=== PATIENT | female | born 1940 | race Caucasian/White ===

== ENCOUNTER 2018-07-21 15:42 | Observation (INO) | payer MEDICARE ==
[~2018-07-21] VITALS: Ht 157.5 cm; Wt 49.9 kg
[2018-07-21] MEDS ORDERED: SODIUM CHLORIDE 0.9% 1000ML 1,000 ML IV STA (15:54)
[2018-07-21] MEDS ORDERED: ASPIRIN 81 MG CHEW TAB PO ONE ×2 (16:00→19:45)
--- NOTE | 2018-07-21 16:24 | Diagnostic Imaging Report ---
History: Slurred speech Comparison studies: None Technique: Axial images were obtained from the skull base to the vertex. Coronal and sagittal reconstructions obtained from the axial data. Dose modulation, iterative reconstruction, and/or weight based adjustment of the mA/kV was utilized to reduce the radiation dose to as low as reasonably achievable. Findings: Scalp/skull: No abnormalities. No fractures, blastic or lytic lesions. Extra-axial spaces: No masses. No fluid collections. Brain sulci: Mildly prominent. Ventricles: Mild compensatory dilatation. No hydrocephalus. 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 Punctate lacunar insults are centered in the lateral thalami. No masses, hemorrhage, acute or additional chronic cortical vascular insults. Sellar/suprasellar region: No abnormalities Craniocervical junction: Patent foramen magnum. No Chiari one malformation. Incidental atherosclerotic calcifications in the carotid siphons and left vertebral artery. IMPRESSION: No acute abnormalities. No hemorrhage Chronic findings: 1. Mild generalized volume loss. 2. Cortical left parieto-occipital (MCA) vascular insult. 3. Punctate lacunar insults in the lateral thalami. Signed by: Dr. Isac Morales M.D. on 07/21/2018 4:20 PM
--- NOTE | 2018-07-21 16:27 | Diagnostic Imaging Report ---
EXAM: XR CHEST 1 VIEW DATE: 07/21/2018 3:54 PM INDICATION: Slurred speech COMPARISON: None FINDINGS: Lines and Tubes: None Heart and Mediastinum: Heart prominent. Prominence of the krista bilaterally. Aortic vascular calcifications. Lungs and Pleura: Biapical scarring. No focal consolidation or pneumothorax. Bones and Soft Tissues: No acute findings. IMPRESSION: 1. Cardiomegaly with hilar prominence. Findings could represent vascular congestion or prominent pulmonary arteries. Follow-up recommended. Signed by: Dr. Mateusz Dewitt MD on 07/21/2018 4:24 PM
[2018-07-21 16:40] LABS: BASOPHILS % 0.4 % (0.0-1.0); EOSINOPHILS # (AUTO) 0.2 (0.0-0.4); EOSINOPHILS % 1.8 % (0.0-6.0); HEMATOCRIT 36.3 % (34.2-44.1); HEMOGLOBIN 12.6 g/dL (12.0-16.0); LYMPHOCYTES # (AUTO) 4.9 (1.0-3.2); LYMPHOCYTES % 49.1 % (18.0-39.1); MEAN CORPUSCULAR HEMOGLOBIN 32.6 pg (28-32); MEAN CORPUSCULAR HGB CONC 34.7 g/dL (31-35); MEAN CORPUSCULAR VOLUME 93.8 fL (81-99); MONOCYTES # (AUTO) 1.1 (0.2-0.8); MONOCYTES % 11.3 % (4.4-11.3); NEUTROPHILS # (AUTO) 3.7 (2.1-6.9); PLATELET COUNT 201 x10e3/uL (140-360); RED BLOOD COUNT 3.87 x10e6/uL (3.6-5.1); RED CELL DISTRIBUTION WIDTH 13.3 % (11.7-14.4)
[2018-07-21 16:45] LABS: INR 0.99; PARTIAL THROMBOPLASTIN TIME 23.5 seconds (23.8-35.5); PROTHROMBIN TIME 12.3 seconds (11.9-14.5)
[2018-07-21 16:52] LABS: ALBUMIN 3.5 g/dL (3.5-5.0); ALBUMIN/GLOBULIN RATIO 1.1 (0.8-2.0); ANION GAP 16.9 mmol/L (8-16); CALCIUM 9.9 mg/dL (8.4-10.2); CREATININE, SERUM 1.1 mg/dL (0.57-1.11); POTASSIUM 3.9 mmol/L (3.5-5.1)
[2018-07-21 17:12] LABS: CREATINE KINASE MB 2.7 ng/mL (0-5.0); THYROID STIMULATING HORMONE 1.411 uIU/mL (0.350-4.940)
[2018-07-21 18:29] LABS: BILIRUBIN,URINE NEGATIVE (NEGATIVE); CLARITY,URINE CLEAR (CLEAR); COLOR,URINE YELLOW (YELLOW); KETONES,URINE NEGATIVE (NEGATIVE); LEUKOCYTE ESTERASE ,URINE TRACE (NEGATIVE); NITRITE,URINE NEGATIVE (NEGATIVE); PROTEIN,URINE DIPSTICK NEGATIVE (NEGATIVE); URINE UROBILINOGEN 0.2 mg/dL (0.2 - 1)
[2018-07-21 18:40] LABS: BACTERIA,URINE FEW /HPF; EPITHELIAL CELLS,URINE MODERATE /LPF; RBC,URINE 0-5 /HPF (0-5)
[2018-07-21] MEDS ORDERED: ONDANSETRON HCL INJ 2 MG/ML VIAL IV PRN (19:45)
[2018-07-21] MEDS ORDERED: CARVEDILOL3.125 MG PO (20:35)
[2018-07-21] MEDS ORDERED: LISINOPRIL10 MG PO (20:35)
[2018-07-21] MEDS ORDERED: HYDROCHLOROTHIA25 MG PO (20:35)
[2018-07-21] MEDS ORDERED: SIMVASTATIN80 MG PO (20:35)
[2018-07-21] MEDS: SODIUM CHLORIDE 0.9% 1000ML 1,000 ML IV SCH ×2 (20:36→23:10)
[2018-07-21] MEDS: CLOPIDOGREL BISULFATE 75 MG TAB PO SCH (20:36)
[2018-07-21 22:28] VITALS: BP 186/79
[2018-07-21 22:42] VITALS: BP 186/79
[2018-07-22] VITALS: BP 127/59
[2018-07-22 00:29] LABS: CREATINE KINASE MB 2.9 ng/mL (0-5.0)
[2018-07-22 04:00] VITALS: BP 160/70
[2018-07-22 04:59] LABS: BASOPHILS % 0.3 % (0.0-1.0); EOSINOPHILS # (AUTO) 0.1 (0.0-0.4); EOSINOPHILS % 1.7 % (0.0-6.0); HEMATOCRIT 32.6 % (34.2-44.1); HEMOGLOBIN 11.1 g/dL (12.0-16.0); LYMPHOCYTES # (AUTO) 1.7 (1.0-3.2); LYMPHOCYTES % 25.2 % (18.0-39.1); MEAN CORPUSCULAR HEMOGLOBIN 32.2 pg (28-32); MEAN CORPUSCULAR VOLUME 94.5 fL (81-99); MONOCYTES # (AUTO) 0.8 (0.2-0.8); MONOCYTES % 12.6 % (4.4-11.3); NEUTROPHILS % 59.7 % (38.7-80.0); PLATELET COUNT 161 x10e3/uL (140-360); RED BLOOD COUNT 3.45 x10e6/uL (3.6-5.1); RED CELL DISTRIBUTION WIDTH 13.4 % (11.7-14.4)
[2018-07-22 05:17] LABS: ANION GAP 11.9 mmol/L (8-16); BLOOD UREA NITROGEN 23 mg/dL (7-26); BUN/CREATININE RATIO 28 (6-25); CALCIUM 8.2 mg/dL (8.4-10.2); CARBON DIOXIDE 23 mmol/L (22-29); CHLORIDE 111 mmol/L (98-107); CHOL/HDL RATIO 2.1 (3.0-3.6); CHOLESTEROL 130 MD/DL (0-199); CREATININE, SERUM 0.81 mg/dL (0.57-1.11); EST GLOMERULAR FILTRATION RATE > 60 ML/MIN (60-); GLUCOSE 85 mg/dL (74-118); HDL CHOLESTEROL 61 MG/DL (40-60); LDL CHOLESTEROL 55 MG/DL (60-130); POTASSIUM 3.9 mmol/L (3.5-5.1); SODIUM 142 mmol/L (136-145); TRIGLYCERIDES 71 MG/DL (0-149)
[2018-07-22 05:43] LABS: CREATINE KINASE MB 2.5 ng/mL (0-5.0)
[2018-07-22 07:44] VITALS: BP 157/70
[2018-07-22] MEDS: CLOPIDOGREL BISULFATE 75 MG TAB PO SCH (08:38)
[2018-07-22] MEDS ORDERED: ASPIRIN 81 MG ENTERIC COATED PO SCH (09:00)
[2018-07-22 10:39] VITALS: BP 157/70
[2018-07-22 11:38] VITALS: BP 179/74
[2018-07-22] MEDS ORDERED: HYDROCHLOROTHIAZIDE 25 MG TAB PO SCH (12:00)
[2018-07-22] MEDS ORDERED: LISINOPRIL 20 MG TAB PO SCH (12:00)
[2018-07-22 15:35] VITALS: BP 170/74
[2018-07-22] MEDS ORDERED: CARVEDILOL 3.125 MG TAB PO SCH (17:00)
[2018-07-22] MEDS ORDERED: SIMVASTATIN 80 MG TAB PO SCH (21:00)
[2018-07-23] MEDS ORDERED: LISINOPRIL 10 MG TAB PO SCH (09:00)
[2018-07-23] MEDS ORDERED: SIMVASTATIN 80 MG TAB PO SCH (09:00)
== END 2018-07-22 17:43 | disposition home or self-care (01) ==
LOC: ER 15:42 → ERHOLD 19:35 → IMCU 21:59
PROVIDERS: ADMIT Internal Medicine; ATTEND Internal Medicine
DX: G45.9 Transient cerebral ischemic attack, unspecified (principal); N17.9 Acute kidney failure, unspecified; E87.1 Hypo-osmolality and hyponatremia; Z88.0 Allergy status to penicillin; Z71.6 Tobacco abuse counseling; Z72.0 Tobacco use; I25.2 Old myocardial infarction; Z82.49 Family history of ischemic heart disease and other diseases of the circulatory system; Z86.73 Personal history of transient ischemic attack (TIA), and cerebral infarction without residual deficits; I10 Essential (primary) hypertension
CPT/HCPCS: 36415 ×2; 70450; 71045; 80048; 80053; 80061; 81001; 82550 ×2; 82553 ×2; 84443; 84484 ×2; 85025 ×2; 85610; 85730; 87086; 93005; 93306; 93880; 99284; G0378 ×2; J7030

== ENCOUNTER 2019-06-13 10:18 | Inpatient (IN) | payer MEDICARE ==
[~2019-06-13] VITALS: Ht 162.6 cm; Wt 45.4 kg
[~2019-06-13 10:18] MED LIST: CARVEDILOL3.125 MG PO; HYDROCHLOROTHIA25 MG PO; LISINOPRIL10 MG PO; SIMVASTATIN80 MG PO
--- OUTSIDE RECORDS SUMMARY | 2019-06-13 10:19 | XMS REPORT ---
Author Author [facility] Address Unknown Phone Unavailable Care Team Providers Care Belt Picker Name Role Phone Norman MURCIA Unavailable Unavailable Problems This patient has no known problems. Allergies, Adverse Reactions, Alerts This patient has no known allergies or adverse reactions. Medications This patient has no known medications. Results Test Description Test Time Test Comments Text Results Atomic Results Result Comments CHEST SINGLE (PORTABLE) 2018-07-21 16:23:00 [facility] [address] [place] [address] Patient Name: HERLINDA JOHANSEN MR #: [id number] : 1940 Age/Sex: 78/F Req #: [id number] Adm Physician: Ordered by: ONUR MURCIA MD Report #: [id number] Location: ER Room/Bed: Procedure: [id number] DX/CHEST SINGLE (PORTABLE) Exam Date: 07/21/18 Exam Time: 1557 REPORT STATUS: Signed EXAM: XR CHEST 1 VIEW DATE: 07/21/2018 3:54 PM INDICATION: Slurred speech COMPARISON: None FINDINGS: Lines and Tubes: None Heart and Mediastinum: Heart prominent. Prominence of the krista bilaterally. Aortic vascular calcifications. Lungs and Pleura: Biapical scarring. No focal consolidation or pneumothorax. Bones and Soft Tissues: No acute findings. IMPRESSION: 1. Cardiomegaly with hilar prominence. Findings could represent vascular congestion or prominent pulmonary arteries. Follow-up recommended. Signed by: Dr. Mateusz Dewitt MD on 07/21/2018 4:24 PM Dictated By: MATEUSZ DEWITT MD 23 Transcribed By: KHALIF on 07/21/181623 COPY TO: ONUR MURCIA MD CT BRAIN WO 2018-07-21 16:15:00 [place] [address] Patient Name: HERLINDA JOHANSEN MR #: [id number] : 1940 Age/Sex: 78/F Req #: [id number] Adm Physician: Ordered by: ONUR MURCIA MD Report #: [id number] Location: ER Room/Bed: Procedure: [id number] CT/CT BRAIN WO Exam Date: 07/21/18 Exam Time: 1557 REPORT STATUS: Signed History: Slurred speech Comparison studies: None Technique: Axial images were obtained from the skull base to the vertex. Coronal and sagittal reconstructions obtained from the axial data. Dose modulation, iterative reconstruction, and/or weight based adjustment of the mA/kV was utilized to reduce the radiation dose to as low as reasonably achievable. Findings: Scalp/skull: No abnormalities. No fractures, blastic or lytic lesions. Extra-axial spaces: No masses. No fluid collections. Brain sulci: Mildly prominent. Ventricles: Mild compensatory dilatation. No hydrocephalus. 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 Punctate lacunar insults are centered in the lateral thalami. No masses, hemorrhage, acute or additional chronic cortical vascular insults. Sellar/suprasellar region: No abnormalities Craniocervical junction: Patent foramen magnum. No Chiari one malformation. Incidental atherosclerotic calcifications in the carotid siphons and left vertebral artery. IMPRESSION: No acute abnormalities. No hemorrhage Chronic findings: 1. Mild generalized volume loss. 2. Cortical left parieto-occipital (MCA) vascular insult. 3. Punctate lacunar insults in the lateral thalami. Signed by: Dr. Isac Morales M.D. on 07/21/2018 4:20 PM Dictated By: ISAC MORALES MD, MD [id number] Transcribed By: KHALIF on 07/21/18 1620 COPY TO: ONUR MURCIA MD
[2019-06-13] MEDS ORDERED: ASPIRIN 81 MG CHEW TAB PO ONE ×2 (10:45→12:45)
[2019-06-13] MEDS ORDERED: METHYLPREDNISOLONE SOD SUCC 125 MG/2ML VIAL IV ONE (10:45)
[2019-06-13] MEDS ORDERED: ALBUTEROL/IPRATROPIUM 3 ML NEB ONE (10:50)
[2019-06-13] MEDS ORDERED: ALBUTEROL/IPRATROPIUM 3 ML NEB NEB ONE (11:00)
[2019-06-13 11:34] LABS: BASOPHILS % 0.3 % (0.0-1.0); EOSINOPHILS # (AUTO) 0.2 (0.0-0.4); EOSINOPHILS % 1.7 % (0.0-6.0); HEMOGLOBIN 13.2 g/dL (12.0-16.0); LYMPHOCYTES % 10.8 % (18.0-39.1); MEAN CORPUSCULAR HEMOGLOBIN 34.3 pg (28-32); MEAN CORPUSCULAR VOLUME 103.9 fL (81-99); MONOCYTES # (AUTO) 0.9 (0.2-0.8); MONOCYTES % 10.1 % (4.4-11.3); NEUTROPHILS # (AUTO) 7.2 (2.1-6.9); NEUTROPHILS % 76.8 % (38.7-80.0); PLATELET COUNT 137 x10e3/uL (140-360); RED BLOOD COUNT 3.85 x10e6/uL (3.6-5.1); RED CELL DISTRIBUTION WIDTH 14.5 % (11.7-14.4)
[2019-06-13 11:46] LABS: INR 0.81; PROTHROMBIN TIME 11.7 seconds (11.9-14.5)
[2019-06-13 11:47] LABS: PARTIAL THROMBOPLASTIN TIME 20.7 seconds (23.8-35.5)
--- NOTE | 2019-06-13 11:51 | Diagnostic Imaging Report ---
EXAMINATION: CHEST SINGLE (PORTABLE) INDICATION: Shortness of breath COMPARISON: Chest radiograph of 07/21/2018 FINDINGS: LINES/TUBES:EKG leads overlie the chest. LUNGS:The lungs are well-inflated. Mild biapical pleural parenchymal thickening/scarring. There is airspace opacification at the right lung base partially silhouetting the right hemidiaphragm. PLEURA:No pleural effusion or pneumothorax. MEDIASTINUM:The cardiomediastinal silhouette appears normal in size and shape. Atherosclerotic calcifications of the thoracic aorta. BONES/SOFT TISSUES:No acute osseous injury. ABDOMEN:No free air under the diaphragm. IMPRESSION: Right lower lobe pneumonia. RECOMMENDATIONS: Follow-up chest radiograph in 6-8 weeks to assess for resolution. Signed by: Fawad Giang MD on 06/13/2019 11:48 AM
[2019-06-13 11:55] LABS: ALBUMIN 3.3 g/dL (3.5-5.0); ANION GAP 21.6 mmol/L (8-16); CALCIUM 10.2 mg/dL (8.4-10.2); CREATININE, SERUM 1.27 mg/dL (0.57-1.11); MAGNESIUM 1.6 MG/DL (1.3-2.1); POTASSIUM 4.6 mmol/L (3.5-5.1)
[2019-06-13 11:58] LABS: CREATINE KINASE MB 11.8 ng/mL (0-4.3)
[2019-06-13 12:16] LABS: BAND NEUTROPHILS % (MANUAL) 1 %; EOSINOPHILS % (MANUAL) 1 % (0-7); LYMPHOCYTES % (MANUAL) 8 % (19-48); MONOCYTES % (MANUAL) 3 % (3.4-9.0); NEUTROPHILS % (MANUAL) 87 % (40-74)
[2019-06-13 12:17] LABS: ANISOCYTOSIS SLIGHT; PLATELET ESTIMATE SLIGHTLY DECREASED; PLATELET MORPHOLOGY COMMENT NORMAL; RBC MORPHOLOGY COMMENT ABNORMAL
--- NOTE | 2019-06-13 12:30 | NUR ---
INFORMED OF POSITIVE TROP FOR PT BY THEO LAINEZ; CHANGING MEDICATION ORDERS TO ASA 325 MG PO ONCE AT THIS TIME, SEE eMAR.
--- NOTE | 2019-06-13 12:34 | NUR ---
DR. ONEAL AT BEDSIDE AT THIS TIME FOR PT ROUNDING, UPDATING ON PLAN OF CARE.
[2019-06-13] MEDS ORDERED: ASPIRIN 81 MG CHEW TAB ONE (12:37)
[2019-06-13] MEDS ORDERED: MORPHINE SULFATE 2 MG/ML SYR 1ML IV PRN (12:45)
[2019-06-13] MEDS: ASPIRIN 325 MG TAB EC PO SCH (12:55)
[2019-06-13] MEDS: CEFTRIAXONE SOD 1 GM/NS 50 ML 50 ML IV SCH (13:42)
--- NOTE | 2019-06-13 13:44 | NUR ---
ECHOVASCULAR TECH AT BEDSIDE AT THIS TIME FOR SONOGRAM.
--- NOTE | 2019-06-13 14:18 | NUR ---
BLANKMAKER AT BEDSIDE FOR B/L LE SONOGRAM
[2019-06-13] MEDS: AZITHROMYCIN 500MG/NS 250 ML 250 ML IV SCH (15:45)
[2019-06-13 15:55] LABS: BILIRUBIN,URINE SMALL (NEGATIVE); CLARITY,URINE SL CLOUDY (CLEAR); COLOR,URINE YELLOW (YELLOW); KETONES,URINE TRACE (NEGATIVE); LEUKOCYTE ESTERASE ,URINE NEGATIVE (NEGATIVE); NITRITE,URINE NEGATIVE (NEGATIVE); PROTEIN,URINE DIPSTICK NEGATIVE (NEGATIVE); URINE UROBILINOGEN 0.2 mg/dL (0.2 - 1)
[2019-06-13 16:04] LABS: BACTERIA,URINE MODERATE /HPF; EPITHELIAL CELLS,URINE MODERATE /LPF; HYALINE CASTS 0-1 (0-1)
--- NOTE | 2019-06-13 16:33 | NUR ---
INFORMED THEO LAINEZ OF HYPOTENSIVE EPISODE 73/36 RUE AND 70/31 LUE; RECEIVED ORDERS FOR 500 CC BOLUS AND LACTIC ACID BLOOD DRAW, COMPLETING AT THIS TIME.
[2019-06-13] MEDS ORDERED: SODIUM CHLORIDE 0.9% 1000ML 1,000 ML ONE (16:38)
--- NOTE | 2019-06-13 17:22 | NUR ---
THEO LAINEZ INFORMED DR. HEAD OF CURRENT PATIENT CONDITION, UPDATED ON CONDITION AND IMPROVED BP AFTER 500 CC NS BOLUS, NO FURTHER ORDERS RECEIVED AT THIS TIME.
[2019-06-13] MEDS: CARVEDILOL 3.125 MG TAB PO SCH (17:30)
[2019-06-13] MEDS ORDERED: SODIUM CHLORIDE 0.9% 500ML 500 ML IV ONE (17:30)
--- NOTE | 2019-06-13 18:20 | NUR ---
PT TO THE FLOOR AT THIS TIME. VITALS WNL, FAMILY AT BEDSIDE. PT DENIES NEEDS AT THIS TIME.
[2019-06-13 18:25] VITALS: BP 119/55
--- NOTE | 2019-06-13 18:30 | Consultation ---
DATE OF CONSULTATION: 06/13/2019 Cardiology Consultation REQUESTING PHYSICIAN: Rusty Harp MD REASON FOR CONSULTATION: Elevated troponin. HISTORY OF PRESENT ILLNESS: This is a 79-year-old woman with history of hypertension, reported history of prior myocardial infarction and prior TIA, who presents with two weeks of progressive shortness of breath and wheezing. She reports productive cough as well as dyspnea with walking across the room. She denies any chest pain, orthopnea, or PND. Due to her symptoms, she presented to the ER for further evaluation. Chest x-ray revealed right lower lobe pneumonia. Labs demonstrated elevated troponin at 0.52 for which Cardiology is consulted. REVIEW OF SYSTEMS: A 12-point review of systems was performed and is negative except as per HPI. PAST MEDICAL HISTORY: 1. Hypertension. 2. History of TIA. 3. History of myocardial infarction. PAST SURGICAL HISTORY: Denies. SOCIAL HISTORY: Smoked one pack a day for 15 years. Occasional alcohol. No illicit drugs. FAMILY HISTORY: Pertinent for father with CABG. ALLERGIES: PLEASE SEE EMR. MEDICATIONS: Please see medication list. PHYSICAL EXAMINATION: VITAL SIGNS: Temperature 97.7 degrees, pulse 91, respiratory rate 22, blood pressure 147/77, oxygen saturation 88%. GENERAL: Well-developed, well-nourished woman. HEENT: Normocephalic, atraumatic. Pupils equal. No scleral icterus. NECK: Supple. No thyromegaly or cervical lymphadenopathy. No carotid bruits. LUNGS: Clear to auscultation bilaterally. No wheeze or crackles. CARDIOVASCULAR: Normal rate regular rhythm. No murmur. Normal S1, S2. ABDOMEN: Soft nontender. EXTREMITIES: No edema. NEUROLOGIC: Nonfocal exam. LABORATORY DATA: Sodium 135, potassium 4.6, chloride 95, CO2 of 23, BUN 30, creatinine 1.27. Troponin 0.52. BNP 4096. D-dimer 872. WBC 9.35, hemoglobin 13.2, hematocrit 40, platelets 137. EKG, normal sinus rhythm, left bundle-branch block. IMPRESSION: 1. Right lower lobe pneumonia. 2. Elevated troponin. 3. Elevated D-dimer. 4. Hypertension. 5. History of TIA. 6. History of myocardial infarction. RECOMMENDATIONS: Trend cardiac enzymes to rule out myocardial infarction. Continue aspirin 325 mg daily. Check fasting lipid panel. Echocardiogram and bilateral lower extremity venous Dopplers have been ordered due to report of left lower extremity edema for the last week. Given elevated D-dimer, we will obtain CTA of the chest to rule out pulmonary embolism. Antibiotics per primary service. Continue home cardiac medications otherwise. Monitor the patient on telemetry while admitted. Thank you for this consult. We will continue to follow. Ava Cleaning MD ABS/MODL /[id number] MTDD
[2019-06-13 20:09] LABS: CREATINE KINASE MB 5.2 ng/mL (0-5.0)
--- NOTE | 2019-06-13 20:21 | NUR ---
CALLED AND SPOKE WITH DR Abel COLLINS REGARDING THIS PATIENT'S TROPONIN RESULT OF 2.953. THE PATIENT DENIES CHEST PAIN AT THIS TIME HOWEVER SHE C/O SLIGHT SHORTNESS OF BREATH. HEAD OF BED ELEVATED,OXYGEN AT 2L/NC WITH SATURATION OF 95%. MD ORDER FOR LOVENOX 40MG BID WITH FIRST DOSE NOW. WILL ADMINISTER THE MEDICATION ONCE THE ORDER HAS BEEN VERIFIED BY THE PHARMACIST.
[2019-06-13] MEDS: ENOXAPARIN SOD INJ 40 MG/0.4 ML SYR SC SCH (20:55)
[2019-06-13 21:03] VITALS: BP 117/58
[2019-06-13 21:35] VITALS: BP 117/58
[2019-06-13] MEDS: TRAZODONE HCL 50 MG TAB PO PRN (21:50)
[2019-06-13] MEDS: SIMVASTATIN 80 MG TAB PO SCH (21:50)
--- NOTE | 2019-06-13 22:29 | Diagnostic Imaging Report ---
EXAM: CT Chest WITH contrast (PE protocol) 06/13/2019 4:10 PM INDICATION: Short of breath COMPARISON: Chest radiograph 06/13/2019 TECHNIQUE: Chest was scanned utilizing a multidetector helical scanner from the lung apex through the level of the diaphragm after administration of IV contrast. Thin section reconstructions were obtained with special concentration on the pulmonary arteries. Coronal and sagittal reformations were obtained. Pulmonary embolism protocol was performed. IV CONTRAST: 100 mL of Isovue 370 COMPLICATIONS: None RADIATION DOSE: Total DLP: 368 mGy*cm Estimated effective dose: (DLP x 0.014 x size factor) mSv CTDIvol has been reviewed. It is below the limits set by the Radiation Protocol Committee (RPC). Dose modulation, iterative reconstruction, and/or weight based adjustment of the mA/kV was utilized to reduce the radiation dose to as low as reasonably achievable. FINDINGS: LINES/ TUBES: None. LUNGS AND AIRWAYS: Bibasilar atelectasis. Airways are normal. PLEURA: Large right and small left pleural effusions. HEART AND MEDIASTINUM: The thyroid gland is normal. No mediastinal, hilar or axillary lymphadenopathy. The heart is moderately enlarged. Aneurysm and thinning of the left ventricular apex. Trace pericardial effusion. Triple vessel coronary artery calcific atherosclerosis. Atherosclerotic calcifications of the mitral annulus, aortic valve, and thoracic aorta and major branches. UPPER ABDOMEN: A 3.1 cm right adrenal nodule, with internal Hounsfield units of less than 10, consistent with a lipid rich adenoma. A 2.5 cm left renal soft tissue dense mass. BONES: There are degenerative changes in the thoracic spine. SOFT TISSUES: Mild anasarca. IMPRESSION: 1. Aneurysm and thinning of the left ventricular apex, presumably related to prior myocardial infarction, with advanced triple vessel coronary artery calcific atherosclerosis. 2. Moderate cardiomegaly with large right and small left pleural effusions and bibasilar atelectasis. 3. Indeterminate 2.5 cm left renal mass. Recommend nonemergent renal mass CT with contrast for further evaluation. Signed by: Hever Leblanc DO on 06/13/2019 10:25 PM
[2019-06-14] VITALS (7 sets, daily range): BP systolic 112–141; BP diastolic 59–86
[2019-06-14] MEDS ORDERED: SODIUM CHLORIDE 0.9% 50ML 50 ML ONE (00:42)
[2019-06-14] MEDS: FUROSEMIDE INJ 10 MG/ML 4 ML VIAL IV SCH ×2 (00:47→10:07)
[2019-06-14] MEDS: CEFTRIAXONE SOD 1 GM/NS 50 ML 50 ML IV SCH ×2 (00:47→12:29)
--- NOTE | 2019-06-14 01:20 | NUR ---
PATIENT CONDITION STABLE WITHOUT CHEST PAIN OR RESPIRATORY DISTRESS, SHE'S ASSISTED WITH THE BEDPAN TO VOID. KEPT CLEAN AND DRY, BED ALARM ON, CALL LIGHT WITHIN EASY REACH.
--- NOTE | 2019-06-14 03:38 | History and Physical ---
PRIMARY CARE DOCTOR: With [facility]. HOSPITAL PHYSICIAN: Dr. Grnat Wahl. CHIEF COMPLAINT: Shortness of breath. HISTORY OF PRESENT ILLNESS: Ms. Jennings is a pleasant 79-year-old female with shortness of breath. The patient was in her usual state of health until 2 weeks previous. She started developing some chest congestion. The patient also with low energy over this time period. There was a pattern of worsening. There was not a lot of phlegm coming up, however. No fevers. She comes to the hospital due to the worsening and then severe intensity. In the hospital, her creatinine is 1.27. White blood count is 9.3. Troponin is 0.5. The patient with chest x-rays suggesting moderate-sized right pneumonitis versus pleural opacity. The patient is placed on BiPAP due to significant work of breathing. The patient has never been admitted to the hospital with any primary respiratory problem. 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 The patient recently has been seeing her build and deployment engineer once a year due to no large changes. The patient on EKG with known left bundle-branch block. She had an EKG in July 2018 demonstrating LVEF 50% to 55%, impaired cardiac relaxation during diastole, RVSP estimated at 50 mmHg. PAST MEDICAL HISTORY: Hypertension, TIA, coronary artery disease. MEDICATIONS: Medication list reviewed per the chart record. ALLERGIES: PENICILLIN IS CITED. FAMILY HISTORY: Noncontributory to this condition. SOCIAL HISTORY: Include no alcohol and no drugs. The patient smoked from age 31 to 79, active, one-half pack per day. 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 She is still living by herself and is independent of ADLs. REVIEW OF SYSTEMS: Limited ability to get as she is on respiratory support device. PHYSICAL EXAMINATION: VITAL SIGNS: Stable, on BiPAP as reviewed per the chart record, although there were some increased work of breathing noted. GENERAL: In bed, now started to speak a little bit better. HEENT: Normocephalic and atraumatic. NECK: Supple. Throat midline. LUNGS: Bilateral air entry, decreased breath sounds at the bases. CARDIOVASCULAR: S1 and S2. No murmurs, rubs, or gallops. ABDOMEN: Soft and nontender. EXTREMITIES: No clubbing. No cyanosis. There is 1+ edema to the feet. INTEGUMENT: No rash. No purpura. LABORATORY DATA: Potassium 4.6, BUN 30, creatinine 1.27. White count 9.3, hematocrit 40, and platelets 137. INR 0.81. LFTs mostly unremarkable. IMPRESSION: 1. Acute respiratory failure, hypoxemic. 2. Fluid overload. 3. Pneumonia, community-acquired prior to hospitalization. 4. Chronic kidney disease, stage 3. 5. Coronary artery disease, known. 6. . PLAN: At this point, the patient will be admitted and we will continue to wean down her respiratory support. The patient may be able to come down to face mask oxygen in the next few hours. Continue diuretics trial. Cardiac enzymes and Cardiology consult to risk stratify chance of new cardiac event. Empiric antibiotics for pneumonia. The patient in critical condition, but slowly improving. We will continue to follow up closely. Follow up kidney function closely. Further imaging of pleural space will be done. Thank you very much, Rohit, for allowing Dr. Wahl and I had the chance to participate in the care of Ms. Jennings. Please call for questions. MD EILEEN Mccormack/SEBASTIAN /[id number]
--- NOTE | 2019-06-14 04:05 | NUR ---
WALKING ROUNDS MADE, PATIENT ASSISTED ON THE BEDPAN. NO ACUTE DISTRESS OBSERVED, SHE DENIES PAIN. BED ALARM ON, CALL LIGHT WITHIN EASY REACH.
--- NOTE | 2019-06-14 06:18 | Diagnostic Imaging Report ---
EXAMINATION: CHEST SINGLE (PORTABLE) INDICATION: Congestive heart failure COMPARISON: Chest radiograph 06/13/2019, chest CT 06/13/2019 FINDINGS: AP view TUBES and LINES: None. LUNGS: Lungs are well inflated. There is mild prominence of the central pulmonary vasculature, consistent with pulmonary venous congestion. PLEURA: Layering pleural effusions, right greater than left. HEART AND MEDIASTINUM: Cardiac size is moderately enlarged. Aortic arch calcifications. BONES AND SOFT TISSUES: No acute osseous lesion. Soft tissues are unremarkable. UPPER ABDOMEN: No free air under the diaphragm. IMPRESSION: Persistent cardiomegaly with layering pleural effusions and pulmonary vascular congestion. Signed by: Hevre Leblanc DO on 06/14/2019 6:15 AM
[2019-06-14 06:19] LABS: HEMATOCRIT 35.6 % (34.2-44.1); HEMOGLOBIN 12.1 g/dL (12.0-16.0); LYMPHOCYTES # (AUTO) 0.8 (1.0-3.2); LYMPHOCYTES % 9.8 % (18.0-39.1); MONOCYTES # (AUTO) 0.7 (0.2-0.8); MONOCYTES % 7.9 % (4.4-11.3); NEUTROPHILS % 81.7 % (38.7-80.0); PLATELET COUNT 154 x10e3/uL (140-360); RED BLOOD COUNT 3.56 x10e6/uL (3.6-5.1); RED CELL DISTRIBUTION WIDTH 14.6 % (11.7-14.4)
[2019-06-14 06:32] LABS: CREATINE KINASE MB 3.3 ng/mL (0-5.0)
[2019-06-14 06:40] LABS: ALBUMIN 2.8 g/dL (3.5-5.0); ANION GAP 17.3 mmol/L (8-16); CALCIUM 9.1 mg/dL (8.4-10.2); CREATININE, SERUM 1.34 mg/dL (0.57-1.11); MAGNESIUM 1.5 MG/DL (1.3-2.1); PHOSPHORUS 3.8 MG/DL (2.3-4.7); POTASSIUM 4.3 mmol/L (3.5-5.1)
[2019-06-14 06:48] LABS: CHOL/HDL RATIO 2.3 (3.0-3.6)
[2019-06-14] MEDS ORDERED: LISINOPRIL 10 MG TAB PO SCH (09:00)
[2019-06-14] MEDS: HYDROCHLOROTHIAZIDE 25 MG TAB PO SCH (09:45)
[2019-06-14] MEDS: CARVEDILOL 3.125 MG TAB PO SCH ×2 (09:45→17:31)
[2019-06-14] MEDS: ASPIRIN 325 MG TAB EC PO SCH (09:45)
[2019-06-14] MEDS: LISINOPRIL 20 MG TAB PO SCH (09:46)
[2019-06-14] MEDS: ENOXAPARIN SOD INJ 40 MG/0.4 ML SYR SC SCH ×2 (09:46→21:13)
[2019-06-14] MEDS: AZITHROMYCIN 500MG/NS 250 ML 250 ML IV SCH (15:00)
--- NOTE | 2019-06-14 15:21 | NUR ---
MEDICINE PROGRESS NOTE DATE: 06/14/[address] Grant Wahl. SUBJECTIVE: Patient continues to feel better Bedrest Eating well 98% saturation, 3 L/min oxygen TTE 35-40% LVEF REVIEW OF SYSTEMS: No bleeding, no rash PHYSICAL EXAMINATION: VITAL SIGNS: Stable per EMR. GENERAL: NAD, Alert/oriented HEENT: Normocephalic and atraumatic. NECK: Supple. Throat midline. LUNGS: Bilateral air entry, decreased breath sounds at the bases. CARDIOVASCULAR: S1 and S2. No murmurs, rubs, or gallops. ABDOMEN: Soft and nontender. EXTREMITIES: No clubbing. No cyanosis. 1+ pedal edema INTEGUMENT: No rash. No purpura. LABORATORY DATA: k 4.3, cr 1.34, 8.6 wbc. hct 35. plt 154. trop 2.9, alb 2.8 IMPRESSION: 1. Acute respiratory failure, hypoxemic. Better 2. Fluid overload. Systolic cardiomyopathy, acute 3. NSTEMI rx for 4. Moderate to large right pleural effusion 5. Pneumonia, community-acquired; acquired prior to hospitalization. 6. Chronic kidney disease, stage 3. 7. Coronary artery disease, known. oxygen support, wean cardiology follow up. ?heart catheterization diuretics trials continue Empiric antibiotics for pneumonia. Follow up kidney function closely. Imaging of pleural space --> get thoracentesis if diuresis is not adequate Long conversation with 3 daughters and 1 son in law in the room. Thank you very much, Rohit, for allowing Dr. Wahl and I had the chance to participate in the care of Ms. Jennings. Please call for questions.
--- NOTE | 2019-06-14 18:45 | Progress Note ---
DATE: 06/14/2019 Cardiology Progress Note SUBJECTIVE: No major events overnight. No more chest discomfort. OBJECTIVE: VITAL SIGNS: Temperature afebrile, pulse 73, respiratory rate 20, blood pressure 120/61, saturating 98% on 2 L nasal cannula. GENERAL: An elderly white female, in no acute distress. CARDIOVASCULAR: Regular rate and rhythm. No murmurs, rubs, or gallops. LUNGS: Clear to auscultation, except decreased breath sounds on the right side at the base. ABDOMEN: Soft, nontender, nondistended. NEURO AND PSYCH: Alert and oriented to person, place, and time. Normal affect. INPATIENT MEDICATIONS: Reviewed. LABORATORY DATA: Reviewed, significant for troponin elevation with peak troponin of 2.9, now down trending. GFR is 40. IMAGING DATA: Reviewed. Chest CT shows extensive arthrosclerotic changes of all three coronary arteries. ASSESSMENT AND PLAN: 1. [id number] elevation myocardial infarction. 2. Right lower lobe pneumonia. 3. Hypertension. 4. History of transient ischemic attack. 5. History of myocardial infarction. RECOMMENDATIONS: Given elevated troponin and arthrosclerotic changes on CT scan of the chest, the patient has high likelihood of having coronary artery disease and acute coronary syndrome. Continue full-dose anticoagulation. Discussed with family regarding management over non-ST elevation MA. Options were discussed including coronary angiography versus risk stratification with stress test. They are leaning towards coronary angiography, however, we will like to discuss further. Echocardiogram is pending. The patient feels well and otherwise is asymptomatic currently. Continue diuresing as renal function tolerates. Thank you for this consult. We will continue to follow. MD ROBERTO Zeng/SEBASTIAN /[id number]
--- NOTE | 2019-06-14 19:25 | NUR ---
PATIENT RESTING QUIETLY IN BED, NO RESPIRATORY DISTRESS OBSERVED AND SHE DENIES CHEST PAIN. NO EDEMA NOTED TO THE EXTREMITIES, CALL LIGHT WITHIN EASY REACH, SHE'S INSTRUCTED TO CALL FOR ASSISTANCE NEEDED.
[2019-06-14] MEDS: TRAZODONE HCL 50 MG TAB PO PRN (21:13)
[2019-06-14] MEDS: SIMVASTATIN 80 MG TAB PO SCH (21:13)
--- NOTE | 2019-06-14 23:05 | NUR ---
PATIENT IS SOUNDLY ASLEEP, NO DISTRESS OBSERVED. BED ALARM ON, CALL LIGHT WITHIN EASY REACH.
[2019-06-15] VITALS (7 sets, daily range): BP systolic 115–151; BP diastolic 59–86
[2019-06-15] MEDS: CEFTRIAXONE SOD 1 GM/NS 50 ML 50 ML IV SCH ×2 (01:28→12:33)
--- NOTE | 2019-06-15 03:50 | NUR ---
PATIENT ASSISTED TO THE RESTROOM, SHE'S NOW BACK IN BED WITH BED ALARM ON AND CALL LIGHT WITHIN EASY REACH. SHE DENIES CHEST PAIN, SHE'S INSTRUCTED TO CALL FOR ASSISTANCE.
[2019-06-15 06:42] LABS: ANION GAP 14.4 mmol/L (8-16); CALCIUM 8.7 mg/dL (8.4-10.2); CREATININE, SERUM 1.02 mg/dL (0.57-1.11); MAGNESIUM 1.6 MG/DL (1.3-2.1); POTASSIUM 3.4 mmol/L (3.5-5.1)
[2019-06-15] MEDS: FUROSEMIDE INJ 10 MG/ML 4 ML VIAL IV SCH (09:13)
[2019-06-15] MEDS: HYDROCHLOROTHIAZIDE 25 MG TAB PO SCH (09:13)
[2019-06-15] MEDS: ASPIRIN 325 MG TAB EC PO SCH (09:13)
[2019-06-15] MEDS: ENOXAPARIN SOD INJ 40 MG/0.4 ML SYR SC SCH ×2 (09:14→20:42)
[2019-06-15] MEDS: LISINOPRIL 20 MG TAB PO SCH (09:18)
[2019-06-15] MEDS: CARVEDILOL 3.125 MG TAB PO SCH ×2 (09:18→16:45)
--- NOTE | 2019-06-15 14:12 | NUR ---
MEDICINE PROGRESS NOTE DATE: 06/15/[address] Grant Wahl. SUBJECTIVE: better breathing again k low no cheest pain walking around again REVIEW OF SYSTEMS: No bleeding, no rash PHYSICAL EXAMINATION: VITAL SIGNS: Stable per EMR. GENERAL: NAD, Alert/oriented HEENT: Normocephalic and atraumatic. NECK: Supple. Throat midline. LUNGS: Bilateral air entry, decreased breath sounds at the bases. CARDIOVASCULAR: S1 and S2. No murmurs, rubs, or gallops. ABDOMEN: Soft and nontender. EXTREMITIES: No clubbing. No cyanosis. 1+ pedal edema INTEGUMENT: No rash. No purpura. LABORATORY DATA: k 3.4, cr 1.02 IMPRESSION: 1. Acute respiratory failure, hypoxemic. Better 2. Fluid overload. Systolic cardiomyopathy, acute 3. NSTEMI rx for 4. Moderate to large right pleural effusion 5. Pneumonia, community-acquired; acquired prior to hospitalization. 6. Chronic kidney disease, stage 3. 7. Coronary artery disease, known. oxygen support, wean cardiology follow up. likely for heart catheterization Sunday diuretics trials continue Empiric antibiotics for pneumonia. Follow up kidney function closely. Imaging of pleural space --> get thoracentesis if diuresis is not adequate Thank you very much, Rohit, for allowing Dr. Wahl and I had the chance to participate in the care of Ms. Jennings. Please call for questions.
[2019-06-15] MEDS: AZITHROMYCIN 500MG/NS 250 ML 250 ML IV SCH (14:50)
[2019-06-15] MEDS ORDERED: POTASSIUM CHLORIDE 20 MEQ TAB CR PO ONE (15:00)
[2019-06-15] MEDS: TRAZODONE HCL 50 MG TAB PO PRN (20:42)
[2019-06-15] MEDS: SIMVASTATIN 80 MG TAB PO SCH (20:42)
--- NOTE | 2019-06-15 20:45 | NUR ---
NO RESPIRATORY DISTRESS OBSERVED, PATIENT DENIES CHEST PAIN. CALL LIGHT WITHIN EASY REACH, SHE'S EDUCATED TO MAINTAIN NPO STATUS AFTER MIDNIGHT FOR LEFT HEART CATH TOMORROW.
--- NOTE | 2019-06-15 22:01 | Progress Note ---
DATE: 06/15/2019 Cardiology Progress Note SUBJECTIVE: No major events overnight. OBJECTIVE: VITAL SIGNS: Temperature afebrile, pulse 75, respiratory rate 18, blood pressure 122/62, saturating 95% on 3 L nasal cannula. GENERAL: Elderly female, in no acute distress. CARDIOVASCULAR: Regular rate and rhythm. No murmurs, rubs, or gallops. LUNGS: Clear to auscultation. Decreased breath sounds in right lower lobe. ABDOMEN: Soft, nontender, nondistended. NEURO AND PSYCH: Alert and oriented to person, place, and time. Normal affect. INPATIENT MEDICATIONS: Reviewed. LABORATORY DATA: Reviewed. TELEMETRY DATA: Reviewed. ASSESSMENT/PLAN: 1. Non-ST elevation myocardial infarction. 2. Right lower lobe pneumonia. 3. Right pleural effusion. 4. Hypertension. 5. History of transient ischemic attack. 6. History of myocardial infarction. RECOMMENDATIONS: The patient has a low EF with apical thinning and akinesis consistent with previous anterior AL as well as extensive calcification on CT of the chest. High risk for significant CAD. Plan for coronary angiography tomorrow. Continue Lovenox. She also has a large right pleural effusion which requires thoracentesis. We will try to coordinate with Pulmonary. The patient will likely require revascularization, so we will discuss whether they would prefer to do thoracentesis before the cath tomorrow. Thank you for this consult. We will continue to follow. MD JACOB ZengP/MODL /[id number]
--- NOTE | 2019-06-15 23:30 | NUR ---
PATIENT ASLEEP, SHE'S EASY TO AROUSE. NO DISTRESS OBSERVED, SHE DENIES CHEST PAIN.
[2019-06-16] VITALS (7 sets, daily range): BP systolic 111–159; BP diastolic 52–95
[2019-06-16] MEDS: CEFTRIAXONE SOD 1 GM/NS 50 ML 50 ML IV SCH ×2 (01:18→13:49)
--- NOTE | 2019-06-16 03:20 | NUR ---
ROUNDS MADE, PATIENT SOUNDLY ASLEEP WITHOUT RESPIRATORY DISTRESS. BED ALARM ON, CALL LIGHT WITHIN EASY REACH.
[2019-06-16 06:18] LABS: ANION GAP 16.9 mmol/L (8-16); CALCIUM 9.3 mg/dL (8.4-10.2); CREATININE, SERUM 1.02 mg/dL (0.57-1.11); MAGNESIUM 1.5 MG/DL (1.3-2.1); POTASSIUM 3.9 mmol/L (3.5-5.1)
--- NOTE | 2019-06-16 07:15 | NUR ---
The pt. is lying in bed with her eyes closed and responds readily to voice. She reports that she has maintained n p o status for heart cath today.
--- NOTE | 2019-06-16 07:52 | Diagnostic Imaging Report ---
EXAM: CHEST SINGLE (PORTABLE), AP Portable DATE: 06/16/2019 Time stamp on exam: 6:27 AM INDICATION: Pneumonia COMPARISON: 06/14/2019 FINDINGS: LINES/TUBES: None LUNGS: Mild pulmonary vascular congestion. Right basilar opacity shows improvement. PLEURA: Right pleural effusion slightly larger. HEART AND MEDIASTINUM: Normal size and contour. BONES AND SOFT TISSUES: No acute findings. IMPRESSION: Improving right basilar opacity with an increase in right pleural effusion. Signed by: Dr. Vamsi Vitale DO on 06/16/2019 7:49 AM
[2019-06-16] MEDS: FUROSEMIDE INJ 10 MG/ML 4 ML VIAL IV SCH (09:17)
[2019-06-16] MEDS: CARVEDILOL 3.125 MG TAB PO SCH ×2 (09:17→17:34)
[2019-06-16] MEDS: ASPIRIN 325 MG TAB EC PO SCH (09:17)
[2019-06-16] MEDS: LISINOPRIL 20 MG TAB PO SCH (09:18)
[2019-06-16] MEDS: HYDROCHLOROTHIAZIDE 25 MG TAB PO SCH (09:18)
--- NOTE | 2019-06-16 10:00 | NUR ---
The pt's procedure is tentatively scheduled for 2603-1264 this p m.
--- NOTE | 2019-06-16 11:36 | NUR ---
WOUND CARE NURSE INITIAL CONSULTATION. 79 YEAR OLD FEMALE ADMITTED TO [facility] WITH DX OF RIGHT LOWER LUNG PNEUMONIA AND NSTEMI. HEAD TO TOE SKIN ASSESSMENT PERFORMED TODAY. ECCHYMOSIS TO BILATERAL LOWER AND UPPER EXTREMITIES IS PRESENT. PT ON BLOOD THINNERS. BLANCHABLE REDNESS TO SACRUM. NO OPEN AREAS NOTED AT THIS TIME. LABS: WBC: 8.57 ALB: 2.8 RECOMMENDATIONS: MONITOR ECCHYMOSIS TO BILATERAL UPPER AND LOWER EXTREMITIES DAILY. PROVIDE PT WITH HEEL PROTECTORS AND PILLOW SUSPENSIONS WHILE IN BED. ENCOURAGE PT TO REPOSITION EVERY TWO HOURS AND PRN. ALLEVYN FOAM TO SACRUM DAILY FOR PROTECTION THANKS FOR THIS CONSULTATION. Addendum: 06/16/19 at 1136 by Va Soto RN Amended: Links added.
[2019-06-16] MEDS: AZITHROMYCIN 500MG/NS 250 ML 250 ML IV SCH (14:18)
--- NOTE | 2019-06-16 16:11 | NUR ---
Call received from feed mill lab technician and the pt's. procedure has been postponed until 06/17 at 1400 due to the DrJazmín called away to another hospital for an emergent situation.
--- NOTE | 2019-06-16 19:50 | Progress Note ---
DATE: 06/16/2019 Cardiology Progress Note SUBJECTIVE: No major events overnight. Cardiac cath was delayed today lead to an emergency. OBJECTIVE: VITAL SIGNS: Temperature afebrile, pulse 76, respiratory rate 18, blood pressure 145/76, and saturating 94% on nasal cannula. GENERAL: Elderly white female, in no acute distress. CARDIOVASCULAR: Regular rate and rhythm. No murmurs, rubs, or gallops. LUNGS: Clear to auscultation. ABDOMEN: Soft, nontender, and nondistended. NEURO AND PSYCH: Alert and oriented to person, place, and time. Normal affect. INPATIENT MEDICATIONS: Reviewed. LABORATORY DATA: Reviewed. TELEMETRY DATA: Reviewed. ASSESSMENT AND PLAN: 1. Non-ST elevation myocardial infarction. 2. Czsag-cb-muopssg systolic heart failure, ejection fraction less than 25%. 3. Right pleural effusion. 4. Hypertension. 5. History of transient ischemic attack. 6. History of myocardial infarction. RECOMMENDATIONS: Given severely decreased EF and elevated troponins, plan for coronary angiography. Deferred until tomorrow given logistical emergency today. Continues to be chest pain free. Continue full-dose Lovenox tonight, hold the dose tomorrow morning in preparation for coronary angiography in the morning. Thank you for this consult. We will continue to follow. MD ROBERTO Zeng/MODL /[id number]
[2019-06-16] MEDS: SIMVASTATIN 80 MG TAB PO SCH (21:05)
[2019-06-16] MEDS: TRAZODONE HCL 50 MG TAB PO PRN (21:06)
[2019-06-17] VITALS (13 sets, daily range): BP systolic 110–155; BP diastolic 53–88
--- NOTE | 2019-06-17 00:30 | NUR ---
MEDICINE PROGRESS NOTE DATE: 06/16/[address] Grant Wahl. SUBJECTIVE: Patient continues to feel better CXR reviewed with daughter, better slowly NPO so far this day later heart catheterization deferred due to emergency, but rescheduled REVIEW OF SYSTEMS: No bleeding, no rash PHYSICAL EXAMINATION: VITAL SIGNS: Stable per EMR. GENERAL: NAD, Alert/oriented HEENT: Normocephalic and atraumatic. NECK: Supple. Throat midline. LUNGS: Bilateral air entry, decreased breath sounds at the bases. CARDIOVASCULAR: S1 and S2. No murmurs, rubs, or gallops. ABDOMEN: Soft and nontender. EXTREMITIES: No clubbing. No cyanosis. 1+ pedal edema INTEGUMENT: No rash. No purpura. LABORATORY DATA: 3.9 k, cr 1.0, hco3 31. IMPRESSION: 1. Acute respiratory failure, hypoxemic. Better 2. Fluid overload. Systolic cardiomyopathy, acute 3. NSTEMI rx for 4. Moderate to large right pleural effusion, improving 5. Pneumonia, community-acquired; acquired prior to hospitalization. 6. Chronic kidney disease, stage 3. 7. Coronary artery disease, known. cardiology follow up. heart catheterization rescheduled for Sunday diuretics trials continue Serial CXR, thoracentesis consider if easy and if patient reasonably off blood thinners Empiric antibiotics for pneumonia. Follow up kidney function closely. Thank you very much, Rohit, for allowing Dr. Wahl and I had the chance to participate in the care of Ms. Jennings. Please call for questions.
[2019-06-17] MEDS ORDERED: SODIUM CHLORIDE 0.9% 50ML 50 ML ONE (00:48)
[2019-06-17] MEDS: CEFTRIAXONE SOD 1 GM/NS 50 ML 50 ML IV SCH ×2 (01:00→13:41)
--- NOTE | 2019-06-17 07:49 | NUR ---
I spoke with the clinical laboratory manager for a time for the heart cath and was advised that she will be done later today. The okayed a light breakfast for the pt and then N p o.
[2019-06-17] MEDS: ASPIRIN 325 MG TAB EC PO SCH (07:58)
[2019-06-17] MEDS: FUROSEMIDE INJ 10 MG/ML 4 ML VIAL IV SCH (07:58)
[2019-06-17] MEDS: CARVEDILOL 3.125 MG TAB PO SCH ×2 (08:00→17:01)
[2019-06-17] MEDS: HYDROCHLOROTHIAZIDE 25 MG TAB PO SCH (08:00)
[2019-06-17] MEDS: LISINOPRIL 20 MG TAB PO SCH (08:01)
[2019-06-17] MEDS ORDERED: MIDAZOLAM HCL 2 MG/2 ML VIAL ONE (09:26)
[2019-06-17] MEDS ORDERED: FENTANYL CITRATE/PF 100MCG/2 ML INJ ONE (09:27)
[2019-06-17] MEDS ORDERED: LIDOCAINE HCL 2% LOCAL 20 ML VIAL ONE (09:27)
[2019-06-17] MEDS ORDERED: IOPAMIDOL 370 MG/ML 200 ML INFUS..BTL INJ ONE (09:27)
[2019-06-17] MEDS ORDERED: HEPARIN SOD/SOD CHLORIDE 2,000 ML ONE (09:27)
[2019-06-17] MEDS ORDERED: SODIUM CHLORIDE 0.9% 1000ML 1,000 ML ONE (09:27)
--- NOTE | 2019-06-17 09:29 | NUR ---
quality control lab technician to report that they will be coming for the pt within the hour.
--- NOTE | 2019-06-17 10:14 | NUR ---
The pt. is out of the room for heart cath.
--- NOTE | 2019-06-17 10:30 | NUR ---
[address] report received from EVERT Jiménez.Identiferx2. Alert oriented and appropriate, PERRLA, respirations even and unlabored to room air. Pulses x4 extremities equal and strong. Pedal pulses PT/DP x4 Cap fill brisk < 3 sec. Skin warm and dry integrity appears D/I IV 20g left arm presents healthy w/o s/s of infiltration or complaint. Abdomen soft and supple. pt offered toileting, denies need to urinate or defecate. No personal affects with patient. Family at bedside. Pt and family verbalizes understanding of POC.Necessity for Pacer implanted. Dr Allen at bedside and Dr Sanchez spoke with Pt and family. Currently w/o complaint of pain or need.Rt TR band air reduction ok [id number] (13cc) Tr band. ds/rn
[2019-06-17] MEDS ORDERED: SPIRONOLACTONE 25 MG TAB PO NR (11:00)
--- NOTE | 2019-06-17 11:30 | NUR ---
1130 RADIAL Compression removal: Initial Cuff volume 13 cc 1130am -2cc cc Removed No hematoma/bleeding noted with normal neurovascular function. 1145am -2cc Removed No hematoma/ bleeding noted with normal neurovascular function. 12n -2 cc Removed No hematoma/bleeding noted with normal neurovascular function. 1215 -2cc Removed No hematoma/ bleeding noted with normal neurovascular function. Air removal completed. at 1215 Report phoned to Fartun Gonzalez Stasis achieved sterile 2x2,Tegaderm, Coban dressing No hematoma, bleeding noted with normal neurovascular function. Wrist splint in place. Pt instructed on POC. Ds/Rn
--- NOTE | 2019-06-17 12:00 | NUR ---
The pt. returned from heart cath awake and alert. SHe has an iv nt the left forearm with fluids from the procedure. The vital signs are 135/62 72 17 96.4 93%. The tele monitor was replaced and the pt. served lunch. The pt. has a u s pending.
--- NOTE | 2019-06-17 12:09 | Progress Note ---
DATE: 06/17/2019 Cardiology Progress Note SUBJECTIVE: Ms. Jennings has less shortness of breath. She is able to lay flat. PHYSICAL EXAMINATION: VITAL SIGNS: Afebrile, heart rate is 68, blood pressure is 155/77, O2 saturation is 92% on 3 L nasal cannula. CARDIOVASCULAR: Irregular rhythm, S3 gallop, systolic murmur. LUNGS: Decreased breath sounds. Occasional rhonchi in both lung bases. ABDOMEN: Soft. TELEMETRY: Reviewed and shows sinus rhythm with a bundle branch block. LABORATORY DATA: Hemoglobin is 12. Serum creatinine is 1.02. Repeat troponin 2.4. ASSESSMENT: 1. Iea-BX-ejziuqb elevation myocardial infarction. 2. Acute systolic heart failure. RECOMMENDATIONS: Carvedilol, hydrochlorothiazide and lisinopril are appropriate. Coronary angiography demonstrated occluded left anterior descending artery with no options for revascularization of dyskinetic anterior septal wall of the left ventricle. At this point, medical therapy including outpatient consideration for AICD placement is indicated. We will stop her intravenous Lasix, switch to oral. Add spironolactone as well as Entresto to her medical regimen. MD ROSI Monk/SEBASTIAN /[id number]
--- NOTE | 2019-06-17 12:15 | NUR ---
1215 Stasis. No gross issues pain pallor pressure or dysthymia .Rt tr band site dry and intact wrist splint intact .Report phoned to floor staff,Fartun Gonzalez .Transported to floor with Rn ESCORT and Zoll monitor Pt for dc and potential pacer implantation outpt. Iv infusing well. No s/s infiltration. Stable vs and ekg. Denies c/o Cp or SOB Tolerating po intake family at bedside.Back to baseline Orientation. ds/rn
[2019-06-17] MEDS: AZITHROMYCIN 500MG/NS 250 ML 250 ML IV SCH (13:41)
--- NOTE | 2019-06-17 15:15 | Operative Report ---
DATE OF PROCEDURE: 06/17/2019 SURGEON: Tyson Sanchez MD INDICATION: Ymd-FK-fgyndbh elevation myocardial infarction. PROCEDURES PERFORMED: 1. Left heart catheterization, selective coronary angiography, left ventriculography. 2. Deployment of right wrist TR band. COMPLICATIONS: None. RECOMMENDATIONS: Medical therapy including AICD placement as an outpatient. DESCRIPTION OF PROCEDURE: Access was obtained in the right radial artery. A 5-Zimbabwean sheath was placed. Diagnostic coronary angiogram revealed mild disease in the left main circumflex and right coronary artery. Mid left anterior descending artery is completely occluded with minimal reconstitution from the right coronary artery with grade 1-2 collaterals. LV ejection fraction 30%. Anteroseptal, anteroapical wall of the left ventricle had dyskinesis. LV end-diastolic pressure of 14. No intervention deemed necessary. Right wrist, sheath and guide were removed. TR band applied. The patient was transferred to the floor in stable condition. MD ROSI Monk/MODL /[id number]
[2019-06-17] MEDS: VALSARTAN/SACUBITRIL 24MG/26MG 1 EA TAB PO SCH (17:02)
--- NOTE | 2019-06-17 18:39 | Diagnostic Imaging Report ---
EXAMINATION: Limited chest ultrasound CLINICAL INDICATION: Pleural effusion COMPARISON: Portable chest 06/16/2019, CT chest 04/13/2019 DISCUSSION: Transverse and longitudinal images of the chest were obtained. Moderate right and small left pleural effusions with associated lower lobe atelectasis. IMPRESSION: 1. Uveky-oy-wnauyrre right and small left pleural effusions with associated lower lobe atelectasis. The staff physician below has personally reviewed this exam on the date of dictation. Signed by: Dr. Amauri Houston M.D. on 06/17/2019 6:35 PM
[2019-06-17] MEDS ORDERED: ATORVASTATIN 20 MG TAB PO SCH (21:00)
--- NOTE | 2019-06-17 21:51 | NUR ---
MEDICINE PROGRESS NOTE DATE: 06/17/[address] Grant Wahl. SUBJECTIVE: Patient continues to feel better pt had heart catheterization with CAD but no interventional targets. LVEF 30%. 100% LAD. 20% LCX recovered after the procedure US ordered per patient preference REVIEW OF SYSTEMS: No bleeding, no rash PHYSICAL EXAMINATION: VITAL SIGNS: Stable per EMR. GENERAL: NAD, Alert/oriented HEENT: Normocephalic and atraumatic. NECK: Supple. Throat midline. LUNGS: Bilateral air entry, decreased breath sounds at the bases. CARDIOVASCULAR: S1 and S2. No murmurs, rubs, or gallops. ABDOMEN: Soft and nontender. EXTREMITIES: No clubbing. No cyanosis. 1+ pedal edema INTEGUMENT: No rash. No purpura. LABORATORY DATA: 3.9 k, cr 1.0, hco3 31. IMPRESSION: 1. Acute respiratory failure, hypoxemic. Better 2. Fluid overload. Systolic cardiomyopathy, acute 3. NSTEMI. CAD 4. Moderate to large right pleural effusion, improving 5. Pneumonia, community-acquired; acquired prior to hospitalization. 6. Chronic kidney disease, stage 3. 7. Coronary artery disease, known. cardiology follow up. heart catheterization today diuretics trials continue thoracentesis consider if patient wants-- she is deferring but will review dedicated US chest with patient Empiric antibiotics for pneumonia. Follow up kidney function closely. Thank you very much, Rohit, for allowing Dr. Wahl and I had the chance to participate in the care of Ms. Jennings. Please call for questions.
[2019-06-18] VITALS: BP 103/51
[2019-06-18] MEDS: CEFTRIAXONE SOD 1 GM/NS 50 ML 50 ML IV SCH ×2 (00:45→12:45)
[2019-06-18 04:00] VITALS: BP 124/73
--- NOTE | 2019-06-18 07:00 | NUR ---
Pt received resting in bed. Alert and oriented to staff and surroundings. Encouraged to press call randhawa if help needed. Call randhawa within reach. Pt with left arm saline lock. Call randhawa within reach. Will monitor
--- NOTE | 2019-06-18 07:35 | NUR ---
patient endorsed to next shift for continuity of care.
[2019-06-18 08:04] VITALS: BP 129/68
[2019-06-18] MEDS ORDERED: SPIRONOLACTONE 25 MG TAB PO SCH (09:00)
[2019-06-18] MEDS ORDERED: FUROSEMIDE 40 MG TAB PO SCH (09:00)
[2019-06-18 09:27] VITALS: BP 129/68
[2019-06-18] MEDS: VALSARTAN/SACUBITRIL 24MG/26MG 1 EA TAB PO SCH ×2 (09:27→16:54)
[2019-06-18] MEDS: CARVEDILOL 3.125 MG TAB PO SCH ×2 (09:27→16:54)
[2019-06-18] MEDS: ASPIRIN 325 MG TAB EC PO SCH (09:27)
--- NOTE | 2019-06-18 09:27 | NUR ---
All meds given as ordered. As per Dr. Harp, pt is for discharge home today. Will monitor
[2019-06-18 11:33] VITALS: BP 96/50
--- NOTE | 2019-06-18 11:49 | NUR ---
IMM letter delivered and explained to pt. She stated discharge is "not soon enough." Signed copy placed in chart. Copy to pt.
[2019-06-18] MEDS ORDERED: FUROSEMIDE40 MG PO (12:23)
[2019-06-18] MEDS ORDERED: ASPIR 8181 MG PO (12:23)
[2019-06-18] MEDS ORDERED: ALDACTONE25 MG PO (12:23)
[2019-06-18] MEDS ORDERED: LIPITOR20 MG PO (12:23)
[2019-06-18] MEDS ORDERED: Valsartan/Sacubitril PO (12:23)
--- NOTE | 2019-06-18 13:20 | NUR ---
Pt for discharge but needs life vest to go home. Will follow up
[2019-06-18] MEDS: AZITHROMYCIN 500MG/NS 250 ML 250 ML IV SCH (14:08)
--- NOTE | 2019-06-18 15:30 | Progress Note ---
DATE: 06/18/2019 Cardiology Progress Note SUBJECTIVE: No major events overnight. Wants to go home today. OBJECTIVE: VITAL SIGNS: Temperature afebrile, pulse 69, respiratory rate 20, blood pressure 129/68, saturating 97% on nasal cannula. GENERAL: Elderly female, in no acute distress. CARDIOVASCULAR: Regular rate and rhythm. No murmurs, rubs, or gallops. LUNGS: Clear to auscultation bilaterally. ABDOMEN: Soft, nontender, nondistended. NEURO AND PSYCH: Alert and oriented to person, place, and time. Normal affect. INPATIENT MEDICATIONS: Reviewed. TELEMETRY DATA: Reviewed. LABORATORY DATA: Reviewed. IMAGING DATA: Reviewed. Coronary angiography yesterday showed chronic total occlusion of the LAD with no significant collateralization, likely diffuse disease and akinetic apex, not amenable to revascularization. ASSESSMENT AND PLAN: 1. Non-ST elevation myocardial infarction. 2. Acute systolic heart failure exacerbation, EF 20% to 25%. 3. Coronary artery disease. 4. Hypertension. 5. Hyperlipidemia. RECOMMENDATIONS: Continue optimal medical therapy for her heart failure as prescribed including carvedilol and Entresto. Also continue Lasix and spironolactone. Discussed with patient and her daughter regarding LifeVest and they are interested in being discharged with LifeVest. LifeVest has been ordered and will be fitted before discharge. She will follow up with her primary hotel director at [facility] one week from today for lab work as well as discussion about chronic heart failure therapy and possible AICD in the future. Thank you for this consult. We will continue to follow. MD ROBERTO Zeng/SEBASTIAN /[id number]
[2019-06-18 16:01] VITALS: BP 131/65
--- NOTE | 2019-06-18 18:00 | NUR ---
[employer] Life vest fitter at bedside. Will prepare discharge
--- NOTE | 2019-06-18 19:42 | NUR ---
patient discharged and left unit via wheel chair. Patient had her life vest and was given extensive education on it by personnel from the life vest [employer].
[2019-06-18] MEDS ORDERED: ATORVASTATIN 40 MG TAB PO SCH (21:00)
--- NOTE | 2019-06-18 21:48 | NUR ---
discharge [id number]
--- NOTE | 2019-06-19 07:59 | Discharge Summary ---
HOSPITAL PHYSICIAN: Dr. Grant Wahl. PATIENT'S PHYSICIAN: Dr. Collins, in [facility] group. PRIMARY DIAGNOSES: Community-acquired pneumonia plus congestive heart failure. DISCHARGE DIAGNOSES: Community-acquired pneumonia plus congestive heart failure. Cardiac catheterization showed some coronary artery disease with LVEF 30%. Chronic kidney disease. HOSPITAL COURSE: Ms. Jennings was admitted with excess shortness of breath. Transient BiPAP and non-rebreather mask were used. She improved slowly to semi-rapidly. She had a zbdevkos-vz-orxnz right-sided pleural effusion and smaller left pleural effusion, but this was responding to Lasix. Furthermore, the patient was not very eager to have drainage. Ultrasound performed the day prior to discharge showed a suzpp-yj-qzpphjap pleural effusion that was left undrained and for medical management. In the interim, the patient had EKG changes of bundle-branch block and echo with a depressed ejection fraction of 30% to 35%, which was not known to be present before. She was recommend for invasive testing. A 100% LAD blockage, 20% left circumflex, and LVEF was 30% on heart catheterization. No interventional targets were noted. She was recommended for medical management. She continued to improve and was allowed for outpatient followup and discharge. Of note, labs included 1.0 creatinine on discharge. It was 1.34 earlier. Troponin had peaked at 2.95, BNP 4096. Albumin 3.3. DIET AT DISCHARGE: Cardiac diet. ACTIVITY: As tolerated. MEDICATION AT DISCHARGE: See discharge medication record for details. FOLLOWUP: Follow up with Dr. Collins in [facility] primary team in the next couple of weeks. Greater than 30 minutes in direct care and coordination of discharge on this day. MD EILEEN Mccormack/MARGOTHL /[id number]
== END 2019-06-18 19:33 | disposition home or self-care (01) | DRG 280 ==
LOC: ER 10:18 → ERHOLD 12:34 → MED/SURG2 18:28
PROVIDERS: ADMIT Internal Medicine Critical Care Medicine; ATTEND Internal Medicine Critical Care Medicine
PROC: 4A023N7 Measurement of Cardiac Sampling and Pressure, Left Heart, Percutaneous Approach (ICD-10-PCS; principal; 2019-06-17)
PROC: B2111ZZ Fluoroscopy of Multiple Coronary Arteries using Low Osmolar Contrast (ICD-10-PCS; 2019-06-17)
PROC: B2151ZZ Fluoroscopy of Left Heart using Low Osmolar Contrast (ICD-10-PCS; 2019-06-17)
DX: I21.4 Non-ST elevation (NSTEMI) myocardial infarction (principal); J18.1 Lobar pneumonia, unspecified organism; J96.01 Acute respiratory failure with hypoxia; I50.21 Acute systolic (congestive) heart failure; G45.9 Transient cerebral ischemic attack, unspecified; I13.0 Hypertensive heart and chronic kidney disease with heart failure and stage 1 through stage 4 chronic kidney disease, or unspecified chronic kidney disease; I10 Essential (primary) hypertension; Z88.0 Allergy status to penicillin; I25.10 Atherosclerotic heart disease of native coronary artery without angina pectoris; I12.9 Hypertensive chronic kidney disease with stage 1 through stage 4 chronic kidney disease, or unspecified chronic kidney disease; N18.3 Chronic kidney disease, stage 3 (moderate); I25.2 Old myocardial infarction
CPT/HCPCS: 36415; 71045; 71260; 76604; 80048; 80053; 80061; 81001; 82550; 82553; 83605; 83735; 83880; 84100; 84484; 85025; 85379; 85610; 85730; 93005; 93306; 93458; 93970; 94640; 96367; 96372; 96374; 96376; 99285; C1769; C1887; J0456; J0696; J1650; J1940; J2001; J2250; J2270; J2930; J3010; J7030; Q9967

== ENCOUNTER 2020-12-08 14:59 | Emergency (ER) | payer MEDICARE ==
[~2020-12-08] VITALS: Ht 162.6 cm; Wt 45.4 kg
[~2020-12-08 14:59] MED LIST changes: +ALDACTONE25 MG PO; +ASPIR 8181 MG PO; +FUROSEMIDE40 MG PO; +LIPITOR20 MG PO; +Valsartan/Sacubitril PO
[2020-12-08] MEDS ORDERED: HYDROCODONE/APAP 5MG-325MG TAB PO ONE (15:45)
[2020-12-08] MEDS ORDERED: LIDOCAINE 4% PATCH TP ONE ×2 (15:45→19:15)
[2020-12-08 16:01] LABS: CLARITY,URINE SL CLOUDY (CLEAR); COLOR,URINE YELLOW (YELLOW); KETONES,URINE TRACE (NEGATIVE); LEUKOCYTE ESTERASE ,URINE NEGATIVE (NEGATIVE); NITRITE,URINE NEGATIVE (NEGATIVE); PROTEIN,URINE DIPSTICK 1+ (NEGATIVE); URINE UROBILINOGEN 0.2 mg/dL (0.2 - 1)
[2020-12-08 16:19] LABS: BACTERIA,URINE RARE /HPF; EPITHELIAL CELLS,URINE FEW /LPF
[2020-12-08] MEDS ORDERED: HYDROCODONE/APAP 5MG-325MG TAB ONE ×2 (19:14→19:16)
== END 2020-12-08 19:23 | disposition home or self-care (01) ==
LOC: ER 15:44
DX: M54.5 Low back pain (principal); I10 Essential (primary) hypertension; E78.5 Hyperlipidemia, unspecified; I25.2 Old myocardial infarction; Z95.810 Presence of automatic (implantable) cardiac defibrillator
CPT/HCPCS: 72072; 72110; 81001; 87086; 99283